=== PATIENT | female | born 1955 | race Caucasian/White ===

== ENCOUNTER 2017-09-16 23:54 | Emergency (ER) | payer SELFPAY ==
--- NOTE | 2017-09-17 01:45 | ER Document Report ---
ED Neck/Back Problem - General Mode of Arrival: Ambulatory Information source: Patient TRAVEL OUTSIDE OF THE [place] IN LAST 30 DAYS: No - HPI Patient complains to provider of: Pain, Neck, Upper back - Upper chest and ultrasound of the face Onset: Other - Actually progressing over the last couple weeks Onset: Gradual Timing: Still present Quality of pain: Pressure, Sharp Severity: Moderate Pain Level: 4 Context: Turning Recent injury: No Associated symptoms: Other - Very large not to the left side of her neck increased pain with any movement of her head or neck Exacerbated by: Movement of neck Relieved by: Nothing Similar symptoms previously: Yes Recently seen / treated by doctor: No <NATALY SNIDER - Last Filed: 09/17/17 03:42> <JENNIFER BRANDON - Last Filed: 09/17/17 05:28> - General Chief Complaint: Neck Swelling Stated Complaint: NECK SWELLING Time Seen by Provider: 09/17/17 01:18 Notes: 62-year-old female presents to ED for a knot on the left side of her neck. She states the not started as a small not about a year to year and a half ago. She states that it started growing about a month ago and then a couple weeks ago it started growing much faster than 3 days ago it spread up and down the neck and she started having pain down the back and chest and down the left arm to the elbow. She states now it is up to the face. She states today her left arm has been very heavy she has been lightheaded dizzy and sleeping a lot. (NATALY SNIDER) - Related Data Allergies/Adverse Reactions: No Known Allergies Allergy (Unverified 09/17/17 00:00) Past Medical History - General Information source: Patient - Social History Smoking Status: Current Every Day Smoker Cigarette use (# per day): Yes - Half pack per day Chew tobacco use (# tins/day): No Smoking Education Provided: Yes - 4 minutes Frequency of alcohol use: None Drug Abuse: None Lives with: Family Family History: Arthritis, CAD, Hyperlipidemia, Hypertension, Malignancy. denies: COPD, CVA, DM, Thyroid Disfunction Patient has suicidal ideation: No Patient has homicidal ideation: No - Past Medical History Cardiac Medical History: Reports: Other - Clot in her buttocks that needed to be removed Pulmonary Medical History: Reports: Hx Pneumonia EENT Medical History: Reports: None Neurological Medical History: Reports: None Endocrine Medical History: Reports: None Renal/ Medical History: Reports: Other - Uterine fibroid tumors Malignancy Medical History: Reports: None GI Medical History: Reports: Other - Infection to intestines requiring surgery Musculoskeltal Medical History: Reports Hx Arthritis Skin Medical History: Reports None Psychiatric Medical History: Reports: None Traumatic Medical History: Reports: None Infectious Medical History: Reports: None Past Surgical History: Reports: Hx Abdominal Surgery, Hx Hysterectomy, Other - Surgery to the buttocks to remove a large clot <NATALY SNIDER - Last Filed: 09/17/17 03:42> Review of Systems <NATALY SNIDER - Last Filed: 09/17/17 03:42> <JENNIFER BRANDON - Last Filed: 09/17/17 05:28> - Review of Systems Notes: Constitutional: [PRESENT: as per HPI. ABSENT: chills, fever(s), headache(s), weight gain, weight loss] Eyes: [ABSENT: visual disturbances] Ears: [ABSENT: hearing changes] Nasopharynx. Absent, nasal drainage pain Neck: Large lump to left side of neck up to behind the ear down to mid neck on the left side decreased movement of the neck due to pain Cardiovascular: [ABSENT: chest pain, dyspnea on exertion, edema, orthropnea, palpitations] Respiratory: [ABSENT: cough, hemoptysis] Gastrointestinal: [ABSENT: abdominal pain, constipation, diarrhea, hematemesis, hematochezia, nausea, vomiting] Genitourinary: [ABSENT: dysuria, hematuria] Musculoskeletal: [ABSENT: joint swelling] Integumentary: [ABSENT: rash, wounds] Neurological: [ABSENT: abnormal gait, abnormal speech, confusion, dizziness, focal weakness, syncope] Psychiatric: [ABSENT: anxiety, depression, homicidal ideation, suicidal ideation ] Endocrine: [ABSENT: cold intolerance, heat intolerance, menstrual abnormalities , polydipsia, polyuria] Hematologic/Lymphatic: [ABSENT: easy bleeding, easy bruising, ] large growth to the left side of neck (NATALY SNIDER) Physical Exam <NATALY SNIDER - Last Filed: 09/17/17 03:42> <JENNIFER BRANDON - Last Filed: 09/17/17 05:28> - Vital signs Vitals: Temp Pulse Resp BP Pulse Ox 97.7 F 76 22 H 139/71 H 96 09/17/17 00:23 09/17/17 00:23 09/17/17 00:23 09/17/17 00:23 09/17/17 00:23 - Notes Notes: PHYSICAL EXAMINATION: GENERAL: Well-appearing, well-nourished and in no acute distress. HEAD: Atraumatic, normocephalic. EYES: Pupils equal round and reactive to light, extraocular movements intact, conjunctiva are normal. ENT: Nares patent, oropharynx clear without exudates. Moist mucous membranes. NECK: Large tender growth to left side of neck, decreased movement due to large growth, tenderness went open and shut her mouth. Pain to the side of her head down to her upper chest around to her upper back and down her left arm. States left arm feels heavy due to growth. LUNGS: Breath sounds clear to auscultation bilaterally and equal. No wheezes rales or rhonchi. HEART: Regular rate and rhythm without murmurs ABDOMEN: Soft, nontender, nondistended abdomen. No guarding, no rebound. No masses appreciated. Female : deferred Musculoskeletal: Decreased range of motion to neck and left shoulder due to pain from not on left-sided neck. No pitting or edema. No cyanosis. NEUROLOGICAL: Cranial nerves grossly intact. Normal speech, normal gait. PSYCH: Very anxious and concerned concerning large knot on left side of neck. SKIN: Warm, Dry, normal turgor, no rashes or lesions noted. (NATALY SNIDER) Course - Laboratory Result Diagrams: 09/17/17 01:50 09/17/17 01:50 <NATALY SNIDER - Last Filed: 09/17/17 03:42> - Laboratory Result Diagrams: 09/17/17 01:50 09/17/17 01:50 <JENNIFER BRANDON - Last Filed: 09/17/17 05:28> - Re-evaluation Re-evalutation: 09/17/17 05:26 Patient was initially evaluated by the nurse practitioner, Angela Snider. Patient is very pleasant 62-year-old female with no past medical history who is does not see physician on a regular basis. She says that a year ago she first noticed a knot on her neck. Still about 3 weeks ago started to enlarge over last 48 hours as enlarged quickly. Within last 40 hours she starts noticed that she has some tingling type sensation into her left hand and she says at times it feels as if she cannot use her left hand hand as well. 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 She is also noticed that she has been a little off balance. On exam she is able walk her own but obviously is staggering some little bit off balance. Patient's daughters also noticed that at times she seems a little bit confused graft times finding the right words to say something. Patient denies any fevers. No infections. She does smoke. She denies a history of cancer but again never sees a doctor physician. On exam the patient does have a very hard mass-like object starting just below the mandible and then increasing up towards the base of the head and down the back of the neck. On CT scan it is read that she has a 6 cm necrotic type mass on the left side of the neck. I therefore called [facility] in [place]. I spoke with the ENT physician, Dr. West, who agreed to accept the patient as an ER to ER transfer for further workup and treatment of the mass. I did explain the situation to the patient and her daughter. They agree with plan. She has no evidence of impending airway compromise at this time. Dictation of this chart was performed using voice recognition software; therefore, there may be some unintended grammatical errors. 09/17/17 05:28 (JENNIFER BRANDON) - Vital Signs Vital signs: Temp Pulse Resp BP Pulse Ox 97.7 F 76 22 H 139/71 H 96 09/17/17 00:23 09/17/17 00:23 09/17/17 00:23 09/17/17 00:23 09/17/17 00:23 - Laboratory Laboratory results interpreted by me: 09/17/17 01:50 Chloride 109 H Calcium 10.3 H AST 13 L Discharge <NATALY SNIDER - Last Filed: 09/17/17 03:42> <JENNIFER BRANDON - Last Filed: 09/17/17 05:28> - Discharge Clinical Impression: Neck mass Condition: Stable Disposition: [facility]
[2017-09-17 02:14] LABS: ABSOLUTE EOSINOPHILS # (AUTO) 0.2 10^3/uL (0.0-0.6); ABSOLUTE LYMPHOCYTES (AUTO) 2.2 10^3/uL (0.5-4.7); ABSOLUTE MONOCYTES (AUTO) 0.7 10^3/uL (0.1-1.4); ABSOLUTE NEUT (AUTO) 6.7 10^3/uL (1.7-8.2); BASOPHILS % (AUTO) 0.3 % (0-2); EOSINOPHILS % (AUTO) 1.6 % (0-6); HEMATOCRIT 40.7 % (36.0-47.0); HEMOGLOBIN 13.6 g/dL (12.0-15.5); LYMPHOCYTES % (AUTO) 22.1 % (13-45); MEAN CORPUSCULAR HGB CONC 33.5 g/dL (32.0-36.0); MEAN CORPUSCULAR VOLUME 92 fl (80-97); MONOCYTES % (AUTO) 7.7 % (3-13); PLATELET COUNT 180 10^3/uL (150-450); RED CELL DISTRIBUTION WIDTH 13.3 % (11.5-14.0); SEGMENTED NEUTROPHILS % (AUTO) 68.3 % (42-78); TOTAL CELLS COUNTED % (AUTO) 100 %; WHITE BLOOD COUNT 9.7 10^3/uL (4.0-10.5)
[2017-09-17 02:19] LABS: ALANINE AMINOTRANSFERASE 18 U/L (9-52); ALBUMIN 3.7 g/dL (3.5-5.0); ALKALINE PHOSPHATASE 83 U/L (38-126); ANION GAP 10 (5-19); ASPARTATE AMINO TRANSFERASE 13 U/L (14-36); BILIRUBIN,DIRECT 0.3 mg/dL (0.0-0.4); BILIRUBIN,TOTAL 0.3 mg/dL (0.2-1.3); BLOOD UREA NITROGEN 16 mg/dL (7-20); CALCIUM 10.3 mg/dL (8.4-10.2); CARBON DIOXIDE 25 mmol/L (22-30); CHLORIDE 109 mmol/L (98-107); GLUCOSE 105 mg/dL (75-110); POTASSIUM 4.1 mmol/L (3.6-5.0); SODIUM 143.7 mmol/L (137-145); TOTAL PROTEIN 6.4 g/dL (6.3-8.2)
--- NOTE | 2017-09-17 03:20 | RADIOLOGY REPORT (SQ) ---
EXAM DESCRIPTION: CHEST PA/LAT CLINICAL HISTORY: 62 years Female, Cough congestion COMPARISON: None. NUMBER OF VIEWS/TECHNIQUE: 2, PA and Lateral LIMITATIONS: None. FINDINGS: Normal lung volume. Clear parenchyma. Mildly enlarged cardiac silhouette. Intact bony thorax. IMPRESSION: No acute cardiopulmonary findings.
[2017-09-17] MEDS ORDERED: IBUPROFEN 800 MG TABLET PO ONE (03:44)
[2017-09-17] MEDS ORDERED: ACETAMINOPHEN 325 MG TABLET PEG PRN ×2 (03:45→04:00)
--- NOTE | 2017-09-17 03:55 | RADIOLOGY REPORT (SQ) ---
EXAM DESCRIPTION: CT SOFT TISSUE NECK WITH CLINICAL HISTORY: 62 years Female, Large mass to left side of neck. COMPARISON: CR, chest, 2.19.18 TECHNIQUE: 75 mL Isovue-370 No contrast. Coronal and sagittal reformat. This exam was performed according to our departmental dose-optimization program, which includes automated exposure control, adjustment of the mA and/or kV according to patient size and/or use of iterative reconstruction technique. FINDINGS: 3.8 x 6.0 x 4.3 cm complex bilobed cystic mass posterior to the left mandible; the 6 cm mass has a 3.2 x 2.7 x 2.7 cm cystic/necrotic component posteriorly and partially calcified 2.3 cm heterogeneous nodular component anteriorly. Mild lymphadenopathy includes a 1.2 x 0.7 cm left level IIb cervical lymph node. Partially imaged cranium demonstrates a 0.7 cm right frontoparietal likely benign extra-axial calcified nodular lesion which may indicate a meningioma, dural calcification, or cranial osteoma/exostosis. Upper thorax and vasculature/[place] appear grossly intact. Impression: 6 cm cervical mass posterior to the left mandible. Differential diagnosis includes neoplasm with necrosis and/or abscess.
[2017-09-17] MEDS ORDERED: ACETAMINOPHEN 325 MG TABLET PO PRN (04:00)
--- NOTE | 2017-09-17 04:27 | RADIOLOGY REPORT (SQ) ---
EXAM DESCRIPTION: CT HEAD WITHOUT CLINICAL HISTORY: 62 years Female, confusion large neck mass COMPARISON: None. TECHNIQUE: No contrast. This exam was performed according to our departmental dose-optimization program, which includes automated exposure control, adjustment of the mA and/or kV according to patient size and/or use of iterative reconstruction technique. FINDINGS: No hemorrhage or infarct. No mass, mass effect, or midline shift. 0.7 cm right frontoparietal likely benign extra-axial calcified nodular lesion which may indicate a meningioma, dural calcification, or cranial osteoma/exostosis. Extra-axial structures appear otherwise grossly intact. Impression: No acute findings. Abnormal CT of the neck reported separately.
[2017-09-17] MEDS ORDERED: NORMAL SALINE 1000 ML 1,000 ML IV ONE ×2 (05:24)
[2017-09-17] MEDS ORDERED: NICOTINE 21 MG/24 HR PATCH.TD24 TD ONE (06:08)
[2017-09-17] MEDS ORDERED: ACETAMINOPHEN 325 MG TABLET PO ONE (09:14)
--- NOTE | 2017-09-17 09:59 | ER Document Report ---
Doctor's Note Notes: 09/17/17 09:58 Patient awaiting transfer to [facility] for left-sided neck mass. Patient in no acute distress with no respiratory stridor and is well appearing on exam.
[2017-09-17 11:34] VITALS: BP 144/68
--- NOTE | 2017-09-17 11:34 | ER Document Report ---
Doctor's Note Notes: 09/17/17 11:34 Patient symptoms talking without any signs of distress. Patient stable for transport at this time.
== END 2017-09-17 11:38 | disposition short-term general hospital (02) ==
LOC: ER 23:54
DX: R22.1 Localized swelling, mass and lump, neck (principal); M54.2 Cervicalgia; R07.9 Chest pain, unspecified; R51 Headache; M54.89 Other dorsalgia; M79.602 Pain in left arm; R26.0 Ataxic gait; R42 Dizziness and giddiness; F41.9 Anxiety disorder, unspecified; F17.210 Nicotine dependence, cigarettes, uncomplicated; Z71.6 Tobacco abuse counseling; R20.2 Paresthesia of skin
CPT/HCPCS: 99406; 99285; 96360; 96361; 36415; 85025; 80053; 71046; 70450; 70491; J7030

== ENCOUNTER 2018-06-18 13:24 | Inpatient (IN) | payer MEDICAID ==
[2018-06-18] MEDS ORDERED: NORMAL SALINE 1000 ML 1,000 ML IV ONE ×2 (13:39→14:36)
[2018-06-18] MEDS ORDERED: CEFTRIAXONE INJ 1000 MG VIAL IV ONE (13:40)
[2018-06-18] MEDS ORDERED: DIGOXIN INJ 0.5 MG/2 ML AMPULE IV ONE ×2 (13:41→14:05)
[2018-06-18] MEDS ORDERED: DEXTROSE 5%-WATER 250 ML with NOREPINEPHRINE BITARTRATE 4 MG IV PRN ×2 (13:53)
[2018-06-18 13:56] LABS: INTERNATIONAL RATION (INR) 1.26; PROTHROMBIN TIME 16.4 SEC (11.4-15.4); VENOUS BLOOD PCO2 61.4 mmHg (35-63); VENOUS BLOOD PH 7.28 (7.30-7.42)
[2018-06-18] MEDS ORDERED: NOREPINEPHRINE BITARTRATE INJ/PF 4 MG/4 ML SDV IV ONE (13:56)
--- NOTE | 2018-06-18 14:00 | RADIOLOGY REPORT (SQ) ---
EXAM DESCRIPTION: CHEST SINGLE VIEW COMPLETED DATE/TIME: 06/18/2018 1:50 pm REASON FOR STUDY: Short of breath COMPARISON: 09/17/2017 EXAM PARAMETERS: NUMBER OF VIEWS: One view. TECHNIQUE: Single frontal radiographic view of the chest acquired. RADIATION DOSE: NA LIMITATIONS: Rotation FINDINGS: LUNGS AND PLEURA: There is heterogeneous opacity of the right upper lobe. MEDIASTINUM AND HILAR STRUCTURES: No masses. Contour normal. HEART AND VASCULAR STRUCTURES: Heart normal in size. Normal vasculature. BONES: No acute findings. HARDWARE: None in the chest. OTHER: Right chest port catheter. IMPRESSION: There is heterogeneous opacity of the right upper lobe concerning for infection on rotat ed AP examination. TECHNICAL DOCUMENTATION: JOB ID: [id number] [employer]- All Rights Reserved Reading location - IP/workstation name: [email or web address]
[2018-06-18 14:08] LABS: HEMATOCRIT 34.5 % (36.0-47.0); HEMOGLOBIN 11.8 g/dL (12.0-15.5); MEAN CORPUSCULAR HEMOGLOBIN 32.4 pg (27.0-33.4); MEAN CORPUSCULAR HGB CONC 34.2 g/dL (32.0-36.0); MEAN CORPUSCULAR VOLUME 95 fl (80-97); PLATELET COUNT 304 10^3/uL (150-450); RED BLOOD COUNT 3.64 10^6/uL (3.72-5.28); RED CELL DISTRIBUTION WIDTH 14.5 % (11.5-14.0); WHITE BLOOD COUNT 12.1 10^3/uL (4.0-10.5)
[2018-06-18 14:10] LABS: ALANINE AMINOTRANSFERASE < 6 U/L (9-52); ALBUMIN 3.5 g/dL (3.5-5.0); ALKALINE PHOSPHATASE 73 U/L (38-126); ANION GAP 14 (5-19); ASPARTATE AMINO TRANSFERASE 33 U/L (14-36); BILIRUBIN,DIRECT 0.5 mg/dL (0.0-0.4); BLOOD UREA NITROGEN 30 mg/dL (7-20); CALCIUM 9.7 mg/dL (8.4-10.2); CARBON DIOXIDE 30 mmol/L (22-30); CHLORIDE 91 mmol/L (98-107); GLUCOSE 182 mg/dL (75-110); POTASSIUM 4.3 mmol/L (3.6-5.0); SODIUM 135.4 mmol/L (137-145)
[2018-06-18] MEDS ORDERED: ACETAMINOPHEN 650 MG SUPP.RECT PR ONE (14:12)
[2018-06-18 14:23] LABS: AMORPHOUS SEDIMENT,URINE TRACE /HPF; APPEARANCE,URINE CLOUDY; BILIRUBIN,URINE NEGATIVE (NEGATIVE); COLOR,URINE YELLOW; GLUCOSE, URINE NEGATIVE (NEGATIVE); KETONES,URINE NEGATIVE (NEGATIVE); LEUKOCYTE ESTERASE,URINE TRACE (NEGATIVE); NITRITE,URINE NEGATIVE (NEGATIVE); PROTEIN,URINE 30 mg/dL (NEGATIVE); URINE SPECIFIC GRAVITY 1.014
[2018-06-18 14:50] LABS: ABSOLUTE LYMPHOCYTES# (MANUAL) 0.8 10^3/uL (0.5-4.7); ABSOLUTE MONOCYTES # (MANUAL) 0.4 10^3/uL (0.1-1.4); ABSOLUTE NEUTROPHILS# (MANUAL) 10.9 10^3/uL (1.7-8.2); BASOPHILS % (MANUAL) 0 % (0-2); EOSINOPHILS % (MANUAL) 0 % (0-6); LYMPHOCYTES % (MANUAL) 7 % (13-45); METAMYELOCYTES % (MANUAL) 1 % (0); MONOCYTES % (MANUAL) 3 % (3-13); SEGMENTED NEUTROPHILS % (MAN) 40 % (42-78); TOTAL CELLS COUNTED 100
[2018-06-18 14:51] LABS: BAND NEUTROPHILS % (MANUAL) 49 % (3-5)
[2018-06-18 14:52] LABS: OVALOCYTES SLIGHT; PLATELET COMMENT ADEQUATE; POIKILOCYTOSIS SLIGHT; POLYCHROMASIA SLIGHT; TOXIC GRANULATION SLIGHT; TOXIC VACUOLATION PRESENT
--- NOTE | 2018-06-18 14:52 | ER Document Report ---
ED General - General Chief Complaint: Unresponsive Stated Complaint: DIFFICULTY BREATHING Time Seen by Provider: 06/18/18 13:31 Notes: EMS was called to the patient's residence for difficulty breathing today. They were told that the patient has end-stage for cancer of the neck, originally from the tonsil. She has been under the care of the doctors advisement. She is undergoing chemotherapy and radiation therapy and about 3 months ago had radical surgery removing all the possible structures in the left neck, but patient has had a reoccurrence of cancer in her neck and been told that she only has less than 4 months to live. Family was in the process of beginning to talk about hospice care for the patient when this happened. The daughter says that she was doing very well the last couple of days. Patient is unable to answer any questions about her history. TRAVEL OUTSIDE OF THE [place] IN LAST 30 DAYS: No - Related Data Allergies/Adverse Reactions: levofloxacin [From Levaquin] Allergy (Verified 06/18/18 17:35) Past Medical History - Social History Smoking Status: Unknown if Ever Smoked Family History: Reviewed & Not Pertinent, Arthritis, CAD, Hyperlipidemia, Hypertension, Malignancy. 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 Past Surgical History: Reports: Hx Abdominal Surgery, Hx Hysterectomy, Other - Surgery to the buttocks to remove a large clot Review of Systems - Review of Systems -: Yes ROS unobtainable due to patient's medical condition - Patient is unable to answer questions. On BiPAP. Physical Exam - Vital signs Vitals: Resp BP Pulse Ox 31 H 70/34 L 89 L 06/18/18 13:28 06/18/18 13:28 06/18/18 13:28 Interpretation: Hypotensive, Tachycardic, Hypoxic, Febrile Notes: PHYSICAL EXAMINATION: GENERAL: Patient brought in by EMS, mechanical bag mask breathing taking place. Patient is extremely tachycardic with A. fib on the monitor and a heart rate of about 180. O2 sat in the mid 70s. Blood pressure 60 systolic. HEAD: Atraumatic, normocephalic. EYES: Pupils equal round and reactive to light, extraocular movements intact. ENT: Unable to visualize. BiPAP in place NECK: Large mass on the left neck. LUNGS: Breath sounds clear on the left, but rhonchi and rales heard on the right chest. HEART: Irregularly irregular rate and rhythm without murmurs. Rate 180/min. ABDOMEN: Soft, nontender. No guarding or rebound. No masses. Feeding tube in the mid abdomen. BACK: No tenderness throughout entire back. EXTREMITIES: Normal range of motion without pain. NEUROLOGICAL: Unable to assess because patient is poorly responsive, on BiPAP. Is moving all 4 extremities. Seems to be trying to talk, but cannot understand what the patient is saying. PSYCH: Normal mood, normal affect. SKIN: Warm, dry, no rashes. Course - Re-evaluation Re-evalutation: 06/18/18 15:06 Patient was put on BiPAP. Do not know if patient is to be intubated. Patient is unable to tell us and family was not available during the early part of the patient's stay. We avoided intubating the patient by BiPAP. Patient was given Lanoxin 0.25 mg IV twice. Normal saline liter IV. 2 g of Rocephin IV given. Heart rate slowed from in the 180s-140s. O2 sat went up to about 97%. Blood pressure crept up to 88 systolic. Was started on levo fed at 8 mics and blood pressure went to slightly above 100. Spoke to a cash application representative at [facility], at the family's request, and they informed the family that they did not think that intubation would be in this patient's best interest and I agree entirely with that feeling. Daughter who has power of commonwealth attorney, has been made aware of my feelings that the patient should not be intubated in the divided has told her the same thing and is agreeable to the patient not being intubated. - Vital Signs Vital signs: Temp Pulse Resp BP Pulse Ox 21 H 90/61 L 95 06/18/18 19:01 06/18/18 19:01 06/18/18 19:01 - Laboratory Result Diagrams: 06/18/18 13:33 06/18/18 13:33 Laboratory results interpreted by me: 06/18/18 06/18/18 06/18/18 13:28 13:33 13:33 WBC 12.1 H RBC 3.64 L Hgb 11.8 L Hct 34.5 L RDW 14.5 H Seg Neuts % (Manual) 40 L Band Neutrophils % 49 H Lymphocytes % (Manual) 7 L Metamyelocytes % 1 H Abs Neuts (Manual) 10.9 H PT 16.4 H VBG pH Sodium Chloride BUN Creatinine Est GFR ( Amer) Est GFR (Non-Af Amer) Glucose POC Glucose 166 H Lactic Acid Direct Bilirubin ALT Urine Protein Urine Urobilinogen Ur Leukocyte Esterase 06/18/18 06/18/18 06/18/18 13:33 13:33 13:33 WBC RBC Hgb Hct RDW Seg Neuts % (Manual) Band Neutrophils % Lymphocytes % (Manual) Metamyelocytes % Abs Neuts (Manual) PT VBG pH 7.28 L Sodium 135.4 L Chloride 91 L BUN 30 H Creatinine 2.55 H Est GFR ( Amer) 23 L Est GFR (Non-Af Amer) 19 L Glucose 182 H POC Glucose Lactic Acid 2.5 H Direct Bilirubin 0.5 H ALT < 6 L Urine Protein Urine Urobilinogen Ur Leukocyte Esterase 06/18/18 13:55 WBC RBC Hgb Hct RDW Seg Neuts % (Manual) Band Neutrophils % Lymphocytes % (Manual) Metamyelocytes % Abs Neuts (Manual) PT VBG pH Sodium Chloride BUN Creatinine Est GFR ( Amer) Est GFR (Non-Af Amer) Glucose POC Glucose Lactic Acid Direct Bilirubin ALT Urine Protein 30 H Urine Urobilinogen 2.0 H Ur Leukocyte Esterase TRACE H - Diagnostic Test Radiology results interpreted by me: 06/18/18 15:09 Chest x-ray shows right upper lobe infiltrate/pneumonia. - EKG Interpretation by Me Rate: Tachycardia Rhythm: A.Fib Critical Care Note - Critical Care Note Total time excluding time spent on procedures (mins): 60 Discharge - Discharge Clinical Impression: Pneumonia, Hypoxia, Cancer of neck, Atrial fibrillation with RVR, Hypotension Condition: Serious Disposition: ADMITTED INPATIENT Admitting Provider: Hospitalist Unit Admitted: ICU
[2018-06-18] MEDS ORDERED: DEXTROSE 5%-NORMAL SALINE 1,000 ML IV PRN (15:29)
[2018-06-18] MEDS ORDERED: IPRATROPIUM/ALBUTEROL 0.5-2.5 MG/3 ML AMPUL NEB PRN (15:30)
--- NOTE | 2018-06-18 15:40 | EKG REPORT ---
SEVERITY:- ABNORMAL ECG - ATRIAL FIBRILLATION WITH RAPID V-RATE REPOLARIZATION ABNORMALITY, PROB RATE RELATED : Confirmed by: Ana Lilia Martin MD 18-Jun-2018 15:39:45
[2018-06-18] MEDS ORDERED: VANCOMYCIN HCL 0 MG in DEXTROSE 5%-WATER 250 ML IV NR (15:45)
[2018-06-18 16:23] LABS: ARTERIAL BLOOD BASE EXCESS -1.4 mmol/L; ARTERIAL BLOOD H2CO3 1.73 mmol/L (1.05-1.35); ARTERIAL BLOOD HCO3 26.1 mmol/L (20-24); ARTERIAL BLOOD O2 SATURATION 96.7 % (94-98); ARTERIAL BLOOD PCO2 57.4 mmHg (35-45); ARTERIAL BLOOD PH 7.28 (7.35-7.45); ARTERIAL BLOOD PO2 100.9 mmHg (80-100); ARTERIAL BLOOD TOTAL CO2 27.8 mmol/L (21-25)
[2018-06-18 16:25] LABS: ARTERIAL BLOOD FIO2 70%
--- NOTE | 2018-06-18 16:27 | PDOC H&P ---
History of Present Illness Admission Date/PCP: 06/18/18 15:38 History of Present Illness: EMY MENA is a 63 year old female past medical history of A. 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 ), dysphagia secondary to malignancy complication status post PEG tube placement. She has been receiving medical care at [facility] and as per daughter she had extensive surgery of the neck but unfortunately the cancer recurred and they were told that she has 4 months to live. Last Sunday she received palliative immunotherapy at [facility]. Plan was to transfer patient to home hospice. She was doing fine until 2 days ago when she started to become more lethargic and less responsive. Today she became progressively unresponsive with labored breathing, drooling and respiratory distress and EMS was called. On my encounter patient is laying in bed in respiratory distress while on BiPAP. She is awake however very confused and does not follow any commands. As per daughter has medical power of attorney general she does not want mother to be transferred. She wants her mother to be cared for here at [facility] while arrangement is being made for her to be transferred to home hospice. She wants her CODE STATUS as modified DNR [no intubation, no chest compression] Had a conversation with Dr. Avila her oncologist who is recommending inpatient hospice transfer. search planner has been consulted for arrangement to inpatient hospice transfer. 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 denies: COPD, CVA, DM, Thyroid Disfunction Parental Family History Reviewed: Yes Children Family History Reviewed: Yes Sibling(s) Family History Reviewed.: Yes Medication/Allergy Home Medications: Fentanyl [Duragesic 25 mcg/hr Transdermal Patch] 1 patch TP Q3D 06/18/18 Gabapentin [Neurontin 100 mg Capsule] 100 mg PO TID 06/18/18 Metoprolol Tartrate [Lopressor 25 mg Tablet] 25 mg PO Q12 06/18/18 Ondansetron [Zofran Odt 4 mg Tablet] 8 mg PO TIDP PRN 06/18/18 Oxycodone HCl [Oxycodone HCl 10 MG Tablet] 10 mg PO Q4H 06/18/18 Trazodone HCl [Desyrel 50 mg Tablet] 50 mg PO QHS 06/18/18 Allergies/Adverse Reactions: levofloxacin [From Levaquin] Allergy (Verified 06/18/18 17:35) Review of Systems ROS unobtainable: Due to mental status Physical Exam Vital Signs: Temp Pulse Resp BP Pulse Ox 21 H 122/73 95 06/18/18 15:41 06/18/18 15:41 06/18/18 15:41 Intake & Output 06/17/18 06/18/18 06/19/18 06:59 06:59 06:59 Intake Total 18 Balance 18 General appearance: PRESENT: severe distress, well-nourished Neck exam: PRESENT: other - Post surgical changes over the left neck and right breast. No active sign of discharge or infection.. ABSENT: carotid bruit, JVD , lymphadenopathy, thyromegaly Respiratory exam: PRESENT: crackles, decreased breath sounds, prolonged expiratory phas, tachypnea. ABSENT: rales, rhonchi, wheezes Cardiovascular exam: PRESENT: irregular rhythm, tachycardia. ABSENT: diastolic murmur, rubs, systolic murmur Pulses: PRESENT: normal dorsalis pedis pul GI/Abdominal exam: PRESENT: normal bowel sounds, soft, other - PEG tube in place. No sign of erythema or infection.. ABSENT: distended, guarding, mass, organolmegaly, rebound, tenderness Extremities exam: ABSENT: calf tenderness, clubbing, pedal edema Musculoskeletal exam: PRESENT: normal inspection Neurological exam: PRESENT: awake, CN II-XII grossly intact - By observation, other - Moves all extremities. Patient does not follow commands due to confusion.. ABSENT: motor sensory deficit Skin exam: PRESENT: dry, intact, warm. ABSENT: cyanosis, rash Results Impressions: Chest X-Ray 06/18/18 13:38 IMPRESSION: There is heterogeneous opacity of the right upper lobe concerning for infection on rotated AP examination. Assessment & Plan - Diagnosis (1) Septic shock Is this a current diagnosis for this admission?: Yes Plan: Due to underlying infection. Volume resuscitation, pressors, ICU admission. Follow blood cultures, sputum culture. Patient is DNR except for pressors and antiarrhythmics. (2) Acute respiratory failure with hypoxia Is this a current diagnosis for this admission?: Yes Plan: Likely due to underlying pneumonia versus still failure due to recent immunotherapy. As per daughter who is signed medical power of attorney general she does not want her to be intubated. BiPAP, DuoNeb, broad-spectrum antibiotics, volume resuscitation. Follow-up blood and sputum culture. (3) Hospital-acquired pneumonia Is this a current diagnosis for this admission?: Yes Plan: Hospital-acquired pneumonia versus acute lung injury due to recent immunotherapy. Leukocytosis with bandemia. Pneumonia severity index of 187 with 26 7% mortality, CURB-65 Score 4. Continue vancomycin, Zosyn, levofloxacin for broad-spectrum coverage of gram- negative rods, MRSA and atypicals. Follow-up sputum and blood culture. (5) Acute kidney injury Is this a current diagnosis for this admission?: Yes Plan: Likely prerenal caused by underlying septic shock due to infectious process. Continue volume resuscitation. Monitor volume status and electrolytes. BMP tomorrow. (6) Delirium Is this a current diagnosis for this admission?: Yes Plan: Due to underlying infectious process. Treat the underlying disease. (7) Atrial fibrillation with RVR Is this a current diagnosis for this admission?: No Plan: History of A. fib. Patient received digoxin in ED. Hold beta-blockers and calcium channel blockers due to underlying septic shock.
[2018-06-18] MEDS ORDERED: LEVOFLOXACIN 500 MG/D5W RTU 500 MG/100 ML RTUPB IV ONE (16:30)
[2018-06-18] MEDS: LANSOPRAZOLE 30 MG TAB.RAP.DR PO SCH (18:02)
[2018-06-18] MEDS: PIPERACILLIN SODIUM/TAZOBACTAM 3.375 GM in NORMAL SALINE 100 ML IV SCH ×2 (18:14→23:42)
[2018-06-18] MEDS ORDERED: VANCOMYCIN HCL 750 MG in DEXTROSE 5%-WATER 250 ML IV SCH (20:00)
[2018-06-18] MEDS: HEPARIN SOD (PORCINE) 5,000 UNIT/ML 1 ML SYRINGE SUBCUT SCH (21:07)
[2018-06-19] MEDS ORDERED: OXYCODONE HCL IR 5 MG TABLET PEG ONE (00:40)
[2018-06-19] MEDS: LANSOPRAZOLE 30 MG TAB.RAP.DR PO SCH ×2 (05:35→17:46)
[2018-06-19] MEDS: HEPARIN SOD (PORCINE) 5,000 UNIT/ML 1 ML SYRINGE SUBCUT SCH ×3 (05:35→21:34)
[2018-06-19] MEDS: PIPERACILLIN SODIUM/TAZOBACTAM 3.375 GM in NORMAL SALINE 100 ML IV SCH ×4 (05:40→23:50)
[2018-06-19 06:20] LABS: HEMATOCRIT 32.2 % (36.0-47.0); HEMOGLOBIN 10.8 g/dL (12.0-15.5); MEAN CORPUSCULAR HEMOGLOBIN 32.2 pg (27.0-33.4); MEAN CORPUSCULAR HGB CONC 33.6 g/dL (32.0-36.0); MEAN CORPUSCULAR VOLUME 96 fl (80-97); PLATELET COUNT 153 10^3/uL (150-450); RED BLOOD COUNT 3.35 10^6/uL (3.72-5.28); RED CELL DISTRIBUTION WIDTH 14.7 % (11.5-14.0); WHITE BLOOD COUNT 7.5 10^3/uL (4.0-10.5)
[2018-06-19 06:29] LABS: ALANINE AMINOTRANSFERASE 13 U/L (9-52); ALBUMIN 2.8 g/dL (3.5-5.0); ALKALINE PHOSPHATASE 55 U/L (38-126); ANION GAP 11 (5-19); ASPARTATE AMINO TRANSFERASE 41 U/L (14-36); BILIRUBIN,DIRECT 0.4 mg/dL (0.0-0.4); BILIRUBIN,TOTAL 0.5 mg/dL (0.2-1.3); BLOOD UREA NITROGEN 31 mg/dL (7-20); CALCIUM 8.9 mg/dL (8.4-10.2); CARBON DIOXIDE 26 mmol/L (22-30); CHLORIDE 101 mmol/L (98-107); GLUCOSE 97 mg/dL (75-110); POTASSIUM 4.2 mmol/L (3.6-5.0); SODIUM 138.2 mmol/L (137-145)
[2018-06-19 06:36] LABS: ARTERIAL BLOOD BASE EXCESS -2.4 mmol/L; ARTERIAL BLOOD H2CO3 1.44 mmol/L (1.05-1.35); ARTERIAL BLOOD HCO3 23.9 mmol/L (20-24); ARTERIAL BLOOD O2 SATURATION 96.6 % (94-98); ARTERIAL BLOOD PCO2 47.8 mmHg (35-45); ARTERIAL BLOOD PH 7.32 (7.35-7.45); ARTERIAL BLOOD PO2 94.6 mmHg (80-100); ARTERIAL BLOOD TOTAL CO2 25.3 mmol/L (21-25)
[2018-06-19 06:37] LABS: ARTERIAL BLOOD FIO2 40%
[2018-06-19 11:53] LABS: PATH REVIEW PATHOLOGIST REVIEWED
[2018-06-19] MEDS: OXYCODONE HCL IR 5 MG TABLET PEG PRN ×2 (15:43→20:13)
[2018-06-19] MEDS ORDERED: LEVOFLOXACIN 250 MG/D5W RTU 250 MG/50 ML RTUPB IV SCH (18:00)
[2018-06-19] MEDS: VANCOMYCIN HCL 750 MG in DEXTROSE 5%-WATER 250 ML IV SCH (18:24)
[2018-06-20] MEDS ORDERED: MORPHINE SULFATE 10 MG/ML INJ ONE (02:00)
[2018-06-20] MEDS ORDERED: DILTIAZEM HCL INJ 25 MG/5 ML VIAL ONE (02:01)
[2018-06-20] MEDS: LANSOPRAZOLE 30 MG TAB.RAP.DR PO SCH ×2 (05:20→17:50)
[2018-06-20] MEDS: PIPERACILLIN SODIUM/TAZOBACTAM 3.375 GM in NORMAL SALINE 100 ML IV SCH ×3 (05:41→17:50)
[2018-06-20] MEDS: HEPARIN SOD (PORCINE) 5,000 UNIT/ML 1 ML SYRINGE SUBCUT SCH ×3 (05:41→21:49)
[2018-06-20] MEDS ORDERED: FUROSEMIDE INJ/PF 20 MG/2 ML SDV ONE (06:18)
[2018-06-20] MEDS: MORPHINE SULFATE 10 MG/ML INJ IV PRN ×2 (09:39→21:46)
[2018-06-20] MEDS ORDERED: METOPROLOL TARTRATE PF/INJ 5 MG/5 ML SDV IV ONE ×2 (12:40→14:00)
--- NOTE | 2018-06-20 16:51 | PDOC PROGRESS REPORT ---
Subjective Progress Note for:: 06/19/18 Subjective:: EMY MENA is a 63 year old female past medical history of A. 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 ), dysphagia secondary to malignancy complication status post PEG tube placement. She has been receiving medical care at [facility] and as per daughter she had extensive surgery of the neck but unfortunately the cancer recurred and they were told that she has 4 months to live. Last Sunday she received palliative immunotherapy at [facility]. Plan was to transfer patient to home hospice. She was doing fine until 2 days ago when she started to become more lethargic and less responsive. Today she became progressively unresponsive with labored breathing, drooling and respiratory distress and EMS was called. On my encounter patient is laying in bed in respiratory distress while on BiPAP. She is awake however very confused and does not follow any commands. As per daughter has medical power of estate planning attorney she does not want mother to be transferred. She wants her mother to be cared for here at [facility] while arrangement is being made for her to be transferred to home hospice. She wants her CODE STATUS as modified DNR [no intubation, no chest compression] Had a conversation with Dr. Avila her oncologist who is recommending inpatient hospice transfer. meeting/event planner has been consulted for arrangement to inpatient hospice transfer. 06/19/2018. On my encounter patient was still confused and needing supplemental oxygen. Hospice was contacted and patient is to be transferred to home hospice on Sunday. Reason For Visit: PNEUMONIA Physical Exam Vital Signs: Temp Pulse Resp BP Pulse Ox 97.5 F 143 H 20 139/89 H 97 06/20/18 15:38 06/20/18 15:38 06/20/18 15:38 06/20/18 15:38 06/20/18 15:38 Intake & Output 06/19/18 06/20/18 06/21/18 06:59 06:59 06:59 Intake Total 1247 1880 Output Total 983 519 2937 Balance 822 1030 -1025 Weight 58.5 kg General appearance: PRESENT: mild distress Head exam: PRESENT: atraumatic, normocephalic Respiratory exam: PRESENT: clear to auscultation mary. ABSENT: rales, rhonchi, wheezes Cardiovascular exam: PRESENT: RRR. ABSENT: diastolic murmur, rubs, systolic murmur GI/Abdominal exam: PRESENT: normal bowel sounds, soft. ABSENT: distended, guarding, mass, organolmegaly, rebound, tenderness Neurological exam: PRESENT: awake, reflexes normal, abnormal gait, ataxia, CN II -XII grossly intact, motor sensory deficit, normal gait, aphasic, other. ABSENT : alert, altered, oriented to person, oriented to place, oriented to time, oriented to situation Results Laboratory Results: 06/19/18 05:46 06/19/18 05:46 Impressions: Chest X-Ray 06/18/18 13:38 IMPRESSION: There is heterogeneous opacity of the right upper lobe concerning for infection on rotated AP examination. Assessment & Plan - Diagnosis (1) Septic shock Is this a current diagnosis for this admission?: Yes Plan: Due to underlying infection. Volume resuscitation, pressors, ICU admission. Follow blood cultures, sputum culture. Patient is DNR except for pressors and antiarrhythmics. (2) Acute respiratory failure with hypoxia Is this a current diagnosis for this admission?: Yes Plan: Likely due to underlying pneumonia versus still failure due to recent immunotherapy. As per daughter who is signed medical power of estate planning attorney she does not want her to be intubated. BiPAP, DuoNeb, broad-spectrum antibiotics, volume resuscitation. Follow-up blood and sputum culture. (3) Hospital-acquired pneumonia Is this a current diagnosis for this admission?: Yes Plan: Hospital-acquired pneumonia versus acute lung injury due to recent immunotherapy. Leukocytosis with bandemia. Pneumonia severity index of 187 with 26 7% mortality, CURB-65 Score 4. Continue vancomycin, Zosyn, levofloxacin for broad-spectrum coverage of gram- negative rods, MRSA and atypicals. Follow-up sputum and blood culture. (4) Squamous cell carcinoma of neck Is this a current diagnosis for this admission?: No Plan: Followed by oncologist as outpatient. (5) Acute kidney injury Is this a current diagnosis for this admission?: Yes Plan: Improving. Likely prerenal caused by underlying septic shock due to infectious process. Continue volume resuscitation. Monitor volume status and electrolytes. BMP tomorrow. (6) Delirium Is this a current diagnosis for this admission?: Yes Plan: Due to underlying infectious process. Treat the underlying disease. (7) Atrial fibrillation with RVR Is this a current diagnosis for this admission?: No Plan: History of A. fib. Patient received digoxin in ED. Restart beta-blockers.
--- NOTE | 2018-06-20 17:01 | PDOC PROGRESS REPORT ---
Subjective Progress Note for:: 06/20/18 Subjective:: EMY MENA is a 63 year old female past medical history of A. 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 ), dysphagia secondary to malignancy complication status post PEG tube placement. She has been receiving medical care at [facility] and as per daughter she had extensive surgery of the neck but unfortunately the cancer recurred and they were told that she has 4 months to live. Last Sunday she received palliative immunotherapy at [facility]. Plan was to transfer patient to home hospice. She was doing fine until 2 days ago when she started to become more lethargic and less responsive. Today she became progressively unresponsive with labored breathing, drooling and respiratory distress and EMS was called. On my encounter patient is laying in bed in respiratory distress while on BiPAP. She is awake however very confused and does not follow any commands. As per daughter has medical power of deputy attorney general she does not want mother to be transferred. She wants her mother to be cared for here at [facility] while arrangement is being made for her to be transferred to home hospice. She wants her CODE STATUS as modified DNR [no intubation, no chest compression] Had a conversation with Dr. Avila her oncologist who is recommending inpatient hospice transfer. enterprise resource planner has been consulted for arrangement to inpatient hospice transfer. 06/19/2018. On my encounter patient was still confused and needing supplemental oxygen. Hospice was contacted and patient is to be transferred to home hospice on Sunday. 06/20/2018. On my encounter patient has significant improvement of her mental status. She is alert and oriented x3. She is complaining of neck pain and abdominal pain and wants to be sent home. Reason For Visit: PNEUMONIA Physical Exam Vital Signs: Temp Pulse Resp BP Pulse Ox 97.5 F 143 H 20 139/89 H 97 06/20/18 15:38 06/20/18 15:38 06/20/18 15:38 06/20/18 15:38 06/20/18 15:38 Intake & Output 06/19/18 06/20/18 06/21/18 06:59 06:59 06:59 Intake Total 1247 1880 Output Total 795 017 7017 Balance 822 1030 -1025 Weight 58.5 kg General appearance: PRESENT: mild distress Respiratory exam: PRESENT: clear to auscultation mary. ABSENT: rales, rhonchi, wheezes Cardiovascular exam: PRESENT: RRR. ABSENT: diastolic murmur, rubs, systolic murmur Pulses: PRESENT: normal dorsalis pedis pul Neurological exam: PRESENT: alert, altered, awake, oriented to person, oriented to place, oriented to time, oriented to situation Results Laboratory Results: 06/19/18 05:46 06/19/18 05:46 Impressions: Chest X-Ray 06/18/18 13:38 IMPRESSION: There is heterogeneous opacity of the right upper lobe concerning for infection on rotated AP examination. Assessment & Plan - Diagnosis (1) Septic shock Is this a current diagnosis for this admission?: Yes Plan: Resolved. Off of pressors. Due to underlying infection. Continue IV fluids. Cultures negative so far. Patient is DNR except for pressors and antiarrhythmics. (2) Acute respiratory failure with hypoxia Is this a current diagnosis for this admission?: Yes Plan: Improving. Saturating 97% on 6 L nasal cannula. Likely due to underlying pneumonia versus still failure due to recent immunotherapy. As per daughter who is signed medical power of deputy attorney general she does not want her to be intubated. BiPAP, DuoNeb, broad-spectrum antibiotics, volume resuscitation. Cultures negative so far. (3) Hospital-acquired pneumonia Is this a current diagnosis for this admission?: Yes Plan: Hospital-acquired pneumonia versus acute lung injury due to recent immunotherapy. Cytosis and bandemia has improved. Pneumonia severity index of 187 with 26 7% mortality, CURB-65 Score 4. Continue vancomycin, Zosyn, levofloxacin for broad-spectrum coverage of gram- negative rods, MRSA and atypicals. Cultures negative. (4) Squamous cell carcinoma of neck Is this a current diagnosis for this admission?: No Plan: Followed by oncologist as outpatient. (5) Acute kidney injury Is this a current diagnosis for this admission?: Yes Plan: Improving. Likely prerenal caused by underlying septic shock due to infectious process. Continue volume resuscitation. Monitor volume status and electrolytes. BMP tomorrow. (6) Delirium Is this a current diagnosis for this admission?: Yes Plan: Resolved. Due to underlying infectious process. Treat the underlying disease. (7) Atrial fibrillation with RVR Is this a current diagnosis for this admission?: No Plan: History of A. fib. Patient received digoxin in ED. Restart beta-blockers.
[2018-06-20] MEDS ORDERED: METOPROLOL TARTRATE 25 MG TABLET PO ONE (17:15)
[2018-06-20] MEDS: OXYCODONE HCL IR 5 MG TABLET PEG PRN (17:53)
[2018-06-20] MEDS: VANCOMYCIN HCL 750 MG in DEXTROSE 5%-WATER 250 ML IV SCH (18:31)
[2018-06-21] MEDS ORDERED: METOPROLOL TARTRATE PF/INJ 5 MG/5 ML SDV IV ONE (00:42)
[2018-06-21] MEDS: PIPERACILLIN SODIUM/TAZOBACTAM 3.375 GM in NORMAL SALINE 100 ML IV SCH ×2 (00:46→07:56)
[2018-06-21] MEDS: MORPHINE SULFATE 10 MG/ML INJ IV PRN ×2 (02:32→09:57)
[2018-06-21] MEDS: HEPARIN SOD (PORCINE) 5,000 UNIT/ML 1 ML SYRINGE SUBCUT SCH (08:16)
[2018-06-21 08:39] VITALS: BP 145/87
[2018-06-21] MEDS: LANSOPRAZOLE 30 MG TAB.RAP.DR PO SCH (09:58)
[2018-06-21] MEDS ORDERED: METOPROLOL TARTRATE 25 MG TABLET PO SCH (10:00)
--- NOTE | 2018-06-21 11:13 | PDOC DISCHARGE SUMMARY ---
General - Admit/Disc Date/PCP Admission Date/Primary Care Provider: 06/18/18 15:38 Discharge Date: 06/21/18 - Discharge Diagnosis (1) Septic shock Is this a current diagnosis for this admission?: Yes (2) Acute respiratory failure with hypoxia Is this a current diagnosis for this admission?: Yes (3) Hospital-acquired pneumonia Is this a current diagnosis for this admission?: Yes (4) Squamous cell carcinoma of neck Is this a current diagnosis for this admission?: No (5) Acute kidney injury Is this a current diagnosis for this admission?: Yes (6) Delirium Is this a current diagnosis for this admission?: Yes (7) Atrial fibrillation with RVR Is this a current diagnosis for this admission?: No - Additional Information Resuscitation Status: Do Not Intubate Discharge Diet: As Tolerated Prescriptions: Azithromycin 500 mg PO DAILY 4 Days #4 tablet Home Medications: Fentanyl [Duragesic 25 mcg/hr Transdermal Patch] 1 patch TP Q3D 06/18/18 Gabapentin [Neurontin 100 mg Capsule] 100 mg PO TID 06/18/18 Metoprolol Tartrate [Lopressor 25 mg Tablet] 25 mg PO Q12 06/18/18 Ondansetron [Zofran Odt 4 mg Tablet] 8 mg PO TIDP PRN 06/18/18 Oxycodone HCl [Oxycodone HCl 10 MG Tablet] 10 mg PO Q4H 06/18/18 Trazodone HCl [Desyrel 50 mg Tablet] 50 mg PO QHS 06/18/18 Azithromycin 500 mg PO DAILY 4 Days #4 tablet 06/21/18 History of Present Illness History of Present Illness: EMY MENA is a 63 year old female past medical history of A. 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 ), dysphagia secondary to malignancy complication status post PEG tube placement. She has been receiving medical care at [facility] and as per daughter she had extensive surgery of the neck but unfortunately the cancer recurred and they were told that she has 4 months to live. Last Sunday she received palliative immunotherapy at [facility]. Plan was to transfer patient to home hospice. She was doing fine until 2 days ago when she started to become more lethargic and less responsive. Today she became progressively unresponsive with labored breathing, drooling and respiratory distress and EMS was called. On my encounter patient is laying in bed in respiratory distress while on BiPAP. She is awake however very confused and does not follow any commands. As per daughter has medical power of divorce attorney she does not want mother to be transferred. She wants her mother to be cared for here at [facility] while arrangement is being made for her to be transferred to home hospice. She wants her CODE STATUS as modified DNR [no intubation, no chest compression] Had a conversation with Dr. Avila her oncologist who is recommending inpatient hospice transfer. technical planner has been consulted for arrangement to inpatient hospice transfer. Hospital Course Hospital Course: (1) Septic shock Resolved. Off of pressors. Due to underlying infection. Cultures negative at the time of discharge. Patient transferred to home hospice. Patient is DNR except for pressors and antiarrhythmics. (2) Acute respiratory failure with hypoxia Improved. Saturating 97% on 6 L nasal cannula. Likely due to underlying pneumonia versus still failure due to recent immunotherapy. As per daughter who is signed medical power of divorce attorney she does not want her to be intubated. BiPAP, DuoNeb, broad-spectrum antibiotics, volume resuscitation. Cultures negative at the time of discharge. Patient transferred to home hospice. (3) Hospital-acquired pneumonia Hospital-acquired pneumonia versus acute lung injury due to recent immunotherapy. Cytosis and bandemia has improved. Pneumonia severity index of 187 with 26 7% mortality, CURB-65 Score 4. Continue vancomycin, Zosyn, levofloxacin for broad-spectrum coverage of gram- negative rods, MRSA and atypicals. Cultures negative at the time of discharge. (4) Squamous cell carcinoma of neck Followed by oncologist as outpatient. Patient end-stage. Transfer to home hospice. (5) Acute kidney injury Improved. Likely prerenal caused by underlying septic shock due to infectious process. (6) Delirium Resolved. Due to underlying infectious process. Treat the underlying disease. (7) Atrial fibrillation with RVR History of A. fib. Patient received digoxin in ED. Restart beta-blockers. Physical Exam Vital Signs: Temp Pulse Resp BP Pulse Ox 97.3 F 127 H 26 H 145/87 H 97 06/21/18 07:32 06/21/18 08:30 06/21/18 08:30 06/21/18 07:32 06/21/18 08:30 Intake & Output 06/20/18 06/21/18 06/22/18 06:59 06:59 06:59 Intake Total 1880 550 100 Output Total 850 2525 Balance 1029 -1974 100 Weight 58.5 kg 57.9 kg General appearance: PRESENT: no acute distress, well-developed, well-nourished Respiratory exam: PRESENT: clear to auscultation mary, crackles. ABSENT: rales, rhonchi, wheezes Cardiovascular exam: PRESENT: RRR. ABSENT: diastolic murmur, rubs, systolic murmur GI/Abdominal exam: PRESENT: normal bowel sounds, soft. ABSENT: distended, guarding, mass, organolmegaly, rebound, tenderness Neurological exam: PRESENT: alert, awake, oriented to person, oriented to situation Results Laboratory Results: 06/19/18 05:46 06/19/18 05:46 Impressions: Chest X-Ray 06/18/18 13:38 IMPRESSION: There is heterogeneous opacity of the right upper lobe concerning for infection on rotated AP examination. Qualifiers - * PATIENT BEING DISCHARGED WITH ANY OF THE FOLLOWING DIAGNOSIS: No
--- NOTE | 2018-06-24 13:16 | PDOC CONSULTATION ---
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 Planes of a cough and shortness of breath however her course has been complicated by dysphasia secondary to radiation therapy and the underlying malignancy. She subsequently has had a PEG. 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 Denies: Bone Cancer, Breast Cancer GI Medical History: Denies: Cirrhosis, Crohn's Disease, Ulcerative Colitis Musculoskeltal Medical History: Reports: Arthritis Skin Medical History: Denies: Psoriasis Traumatic Medical History: Denies: Pneumothorax Hematology: Denies: Sickle Cell Disease Infectious Medical History: Denies: Hepatitis C, HIV, Methicillin-Resistant Staph Aureus Past Surgical History Past Surgical History: Reports: Hysterectomy, Other - Surgery to the buttocks to remove a large clot Social History Information Source: Patient, H Records Smoking Status: Former Smoker Passive smoke exposure as: Both Frequency of Alcohol Use: None Hx Recreational Drug Use: No Hx Prescription Drug Abuse: No Do you have pets?: No Have you had any respiratory illnesses as a child?: No Have you been exposed to any sick contacts recently?: No Have you had any recent respiratory illnesses?: No Have you travelled outside of [place] in the past 12 months?: No - Advance Directive Resuscitation Status: Do Not Intubate Family History Family History: Arthritis, CAD, Hyperlipidemia, Hypertension, Malignancy. denies: COPD, CVA, DM, Thyroid Disfunction Parental Family History Reviewed: Yes Children Family History Reviewed: Yes Sibling(s) Family History Reviewed.: Yes Medication/Allergy Home Medications: Fentanyl [Duragesic 25 mcg/hr Transdermal Patch] 1 patch TP Q3D 06/18/18 Gabapentin [Neurontin 100 mg Capsule] 100 mg PO TID 06/18/18 Metoprolol Tartrate [Lopressor 25 mg Tablet] 25 mg PO Q12 06/18/18 Ondansetron [Zofran Odt 4 mg Tablet] 8 mg PO TIDP PRN 06/18/18 Oxycodone HCl [Oxycodone HCl 10 MG Tablet] 10 mg PO Q4H 06/18/18 Trazodone HCl [Desyrel 50 mg Tablet] 50 mg PO QHS 06/18/18 Azithromycin 500 mg PO DAILY 4 Days #4 tablet 06/21/18 Allergies/Adverse Reactions: levofloxacin [From Levaquin] Allergy (Verified 06/18/18 17:35) Review of Systems Constitutional: PRESENT: fatigue, weakness, weight loss Eyes: ABSENT: visual disturbances Ears: ABSENT: hearing changes Nose, Mouth, and Throat: PRESENT: headache(s). ABSENT: sore throat Cardiovascular: PRESENT: dyspnea on exertion, palpitations. ABSENT: edema, orthropnea Respiratory: PRESENT: cough, dyspnea, sputum. ABSENT: hemoptysis Gastrointestinal: PRESENT: dysphagia, nausea. ABSENT: abdominal pain, coffee ground emesis, hematemesis, hematochezia, melena Genitourinary: PRESENT: nocturia. ABSENT: difficulty urinating, dysuria, hematuria Musculoskeletal: ABSENT: deformity, joint swelling Integumentary: ABSENT: pruritus, rash Neurological: ABSENT: abnormal gait, abnormal movements, abnormal speech, focal weakness, memory loss, numbness Psychiatric: ABSENT: hallucinations, homidical ideation, suicidal ideation Endocrine: ABSENT: cold intolerance, heat intolerance, polydipsia, polyphagia Hematologic/Lymphatic: PRESENT: lymphadenopathy. ABSENT: easy bruising Allergic/Immunologic: ABSENT: seasonal rhinorrhea Physical Exam Vital Signs: Temp Pulse Resp BP Pulse Ox 97.6 F 92 16 116/63 96 06/19/18 07:25 06/19/18 09:11 06/19/18 09:11 06/19/18 07:25 06/19/18 09:11 Intake & Output 06/18/18 06/19/18 06/20/18 06:59 06:59 06:59 Intake Total 1247 Output Total 425 Balance 822 General appearance: PRESENT: no acute distress, cooperative, disheveled, thin, well-developed, well-nourished Head exam: PRESENT: atraumatic, normocephalic Eye exam: PRESENT: conjunctiva pale, EOMI. ABSENT: nystagmus, periorbital swelling, scleral icterus Mouth exam: PRESENT: dry mucosa, neck supple, tongue midline, other - Bulky adenopathy in the neck Neck exam: ABSENT: carotid bruit, JVD, lymphadenopathy, thyromegaly, tracheal deviation, tracheostomy Respiratory exam: PRESENT: decreased breath sounds, prolonged expiratory phas, rales, rhonchi, symmetrical, unlabored. ABSENT: retraction, stridor, tachypnea Cardiovascular exam: PRESENT: irregular rhythm Pulses: PRESENT: normal radial pulses GI/Abdominal exam: PRESENT: soft. ABSENT: tenderness Extremities exam: PRESENT: pedal edema. ABSENT: calf tenderness, clubbing, joint swelling Musculoskeletal exam: ABSENT: deformity, dislocation Neurological exam: PRESENT: awake Psychiatric exam: PRESENT: flat affect Skin exam: PRESENT: dry, warm Results Laboratory Results: 06/19/18 05:46 06/19/18 05:46 06/18/18 06/18/18 06/19/18 16:14 17:30 05:46 WBC 7.5 RBC 3.35 L Hgb 10.8 L Hct 32.2 L MCV 96 MCH 32.2 MCHC 33.6 RDW 14.7 H Plt Count 153 Carbonic Acid 1.73 H HCO3/H2CO3 Ratio 15:1 ABG pH 7.28 L ABG pCO2 57.4 H ABG pO2 100.9 H ABG HCO3 26.1 H ABG O2 Saturation 96.7 ABG Base Excess -1.4 FiO2 70% Sodium Potassium Chloride Carbon Dioxide Anion Gap BUN Creatinine Est GFR ( Amer) Est GFR (Non-Af Amer) Glucose Lactic Acid 2.2 H Calcium Total Bilirubin AST ALT Alkaline Phosphatase Total Protein Albumin 06/19/18 06/19/18 05:46 06:30 WBC RBC Hgb Hct MCV MCH MCHC RDW Plt Count Carbonic Acid 1.44 H HCO3/H2CO3 Ratio 16:1 ABG pH 7.32 L ABG pCO2 47.8 H ABG pO2 94.6 ABG HCO3 23.9 ABG O2 Saturation 96.6 ABG Base Excess -2.4 FiO2 40% Sodium 138.2 Potassium 4.2 Chloride 101 Carbon Dioxide 26 Anion Gap 11 BUN 31 H Creatinine 1.51 H Est GFR ( Amer) 42 L Est GFR (Non-Af Amer) 35 L Glucose 97 Lactic Acid Calcium 8.9 Total Bilirubin 0.5 AST 41 H ALT 13 Alkaline Phosphatase 55 Total Protein 6.0 L Albumin 2.8 L Impressions: Chest X-Ray 06/18/18 13:38 IMPRESSION: There is heterogeneous opacity of the right upper lobe concerning for infection on rotated AP examination. Assessment & Plan - Diagnosis (1) Sepsis Is this a current diagnosis for this admission?: Yes Plan: Continue current antibiotic therapy (2) Squamous cell carcinoma of neck Is this a current diagnosis for this admission?: Yes Plan: Hospice is recommended per oncology (3) Pneumonia Qualifiers: Laterality: right Lung location: upper lobe of lung Is this a current diagnosis for this admission?: Yes Plan: Postobstructive no positive cultures thus far
--- NOTE | 2018-06-24 13:20 | PDOC PROGRESS REPORT ---
Subjective Progress Note for:: 06/20/18 Subjective:: Extremely weak Reason For Visit: PNEUMONIA Physical Exam Vital Signs: Temp Pulse Resp BP Pulse Ox 97.3 F 127 H 26 H 145/87 H 97 06/21/18 11:58 06/21/18 11:58 06/21/18 11:58 06/21/18 07:32 06/21/18 11:58 General appearance: PRESENT: cooperative, disheveled, mild distress, thin Head exam: PRESENT: atraumatic, normocephalic Eye exam: PRESENT: conjunctiva pale, EOMI Mouth exam: PRESENT: dry mucosa, neck supple, tongue midline Neck exam: PRESENT: lymphadenopathy - Bulky. ABSENT: carotid bruit, JVD, thyromegaly, tracheal deviation, tracheostomy Respiratory exam: PRESENT: decreased breath sounds, prolonged expiratory phas, rales, rhonchi, unlabored, wheezes. ABSENT: retraction, stridor, tachypnea Cardiovascular exam: PRESENT: RRR, +S1, +S2 Pulses: PRESENT: normal radial pulses GI/Abdominal exam: PRESENT: soft. ABSENT: tenderness Gentrourinary exam: PRESENT: indwelling catheter Extremities exam: ABSENT: calf tenderness, clubbing, joint swelling Musculoskeletal exam: ABSENT: deformity, dislocation Neurological exam: PRESENT: awake Psychiatric exam: PRESENT: flat affect Skin exam: PRESENT: dry, warm Results Laboratory Results: 06/19/18 05:46 06/19/18 05:46 06/18/18 16:45 Blood Blood Culture - Final NO GROWTH IN 5 DAYS Impressions: Chest X-Ray 06/18/18 13:38 IMPRESSION: There is heterogeneous opacity of the right upper lobe concerning for infection on rotated AP examination. Assessment & Plan - Diagnosis (1) Sepsis Is this a current diagnosis for this admission?: Yes Plan: Continue current antibiotic therapy (2) Squamous cell carcinoma of neck Is this a current diagnosis for this admission?: Yes Plan: Hospice is recommended per oncology (3) Pneumonia Qualifiers: Laterality: right Lung location: upper lobe of lung Is this a current diagnosis for this admission?: Yes Plan: Labs- All tests 24 hr 06/18/18 06/18/18 06/19/18 13:33 16:14 05:46 WBC 12.1 H 7.5 ABG pH 7.28 L ABG pCO2 57.4 H ABG pO2 100.9 H 06/19/18 06:30 WBC ABG pH 7.32 L ABG pCO2 47.8 H ABG pO2 94.6
== END 2018-06-21 13:31 | disposition hospice, home (50) | DRG 871 ==
LOC: ER 13:24 → EH 15:38 → 3S 19:55
PROVIDERS: ADMIT Internal Medicine; ATTEND Internal Medicine
PROC: 5A09457 Assistance with Respiratory Ventilation, 24-96 Consecutive Hours, Continuous Positive Airway Pressure (ICD-10-PCS; principal; 2018-06-18)
PROC: 3E0F73Z Introduction of Anti-inflammatory into Respiratory Tract, Via Natural or Artificial Opening (ICD-10-PCS; 2018-06-19)
DX: A41.9 Sepsis, unspecified organism (principal); J18.9 Pneumonia, unspecified organism; R65.21 Severe sepsis with septic shock; J96.01 Acute respiratory failure with hypoxia; N17.9 Acute kidney failure, unspecified; Z66 Do not resuscitate; C76.0 Malignant neoplasm of head, face and neck; R41.0 Disorientation, unspecified; I48.91 Unspecified atrial fibrillation; M19.90 Unspecified osteoarthritis, unspecified site; Z79.899 Other long term (current) drug therapy; Z92.21 Personal history of antineoplastic chemotherapy; Z92.3 Personal history of irradiation; Z93.1 Gastrostomy status; Z90.710 Acquired absence of both cervix and uterus; Z87.891 Personal history of nicotine dependence; Z82.61 Family history of arthritis; Z80.9 Family history of malignant neoplasm, unspecified; Z82.49 Family history of ischemic heart disease and other diseases of the circulatory system; Z88.3 Allergy status to other anti-infective agents
CPT/HCPCS: 36415; 36600; 71045; 80053; 81001; 82803; 82962; 83605; 85025; 85027; 85610; 87040; 87086; 93005; 93010; 94660; 99291; J0696; J1160; J1644; J1940; J1956; J2270; J2543; J3370; J3490; J7030; J7060